=== PATIENT | male | born 1950 | race Caucasian/White ===

== ENCOUNTER 2022-01-03 14:13 | Outpatient (CLI) | payer MEDICARE, OTHER | END 2022-01-03 14:14 | disposition home or self-care (01) | LOC: CTENTCT 14:13 | PROVIDERS: ATTEND Student in an Organized Health Care Education/Training Program | DX: J33.9 Nasal polyp, unspecified (principal) | CPT/HCPCS: 70486 ==

== ENCOUNTER 2022-02-12 09:47 | Day surgery (SDC) | payer MEDICARE ==
[2022-02-11 10:38] VITALS: BMI 34.9
[2022-02-12] MEDS ORDERED: Oxymetazoline HCl 0.05% (30 ML BOT) ONE ×2 (09:50→10:36)
[2022-02-12] MEDS ORDERED: Bacitracin Zinc Ointment 30 gm TUBE ONE (09:50)
[2022-02-12] MEDS ORDERED: Lidocaine 1% (PF) 30 ML VIAL ONE (09:50)
[2022-02-12] MEDS ORDERED: EPINEPHrine 1 MG/ML AMP ONE (09:50)
[2022-02-12] MEDS ORDERED: fentaNYL PF 100 MCG/2 ML SYRINGE ONE (09:52)
[2022-02-12 10:42] LABS: #Basophils 0.1 thou/uL (0.0-0.2); #Eosinphils 0.9 thou/uL (0.0-0.7); #Lymphocytes 4.7 thou/uL (1.20-3.40); %Basophils 0.8 % (0.0-1.0); %Eosinophils 7.3 % (0.0-10.0); %Lymphocytes 36.9 % (21.0-51.0); %Monocytes 7.6 % (0.0-10.0); %Neutrophils 47.4 % (42.0-75.0); Hemoglobin 16.3 g/dL (14.0-18.0); Mean Corpuscular HGB CONC 32.2 g/dL (32.0-36.0); Mean Corpuscular Hemoglobin 32.8 pg (27.0-31.0); Mean Platelet Volume 7.2 fL (7.4-10.4); Platelet Count 256 10x3/uL (130-400); RBC Distribution Width 12.5 % (11.5-14.5); Red Blood Cell (RBC) Count 4.98 mill/uL (4.70-6.10); White Blood Cell (WBC) Count 12.6 10x3/uL (4.8-10.8)
[2022-02-12 11:03] LABS: Anion Gap 11 mmol/L (10-20); BUN (Urea Nitrogen) 12 mg/dL (8.4-25.7); Calc. Creatinine Clearance 109 mL/min (70-130); Calcium 9.9 mg/dL (7.8-10.44); Carbon Dioxide 26 mmol/L (23-31); Chloride 101 mmol/L (98-107); Estimated GFR 93; Glucose 85 mg/dL (83-110); Potassium 4.5 mmol/L (3.5-5.1); Sodium 133 mmol/L (136-145)
[2022-02-12] MEDS ORDERED: Propofol 500 MG/50 ML VIAL ONE (11:22)
[2022-02-12] MEDS ORDERED: MINERAL OIL/WHITE PETROLATUM 3.5 GM TUBE ONE (11:36)
[2022-02-12] MEDS ORDERED: Rocuronium Bromide 10 MG/ML (10ML VIAL) ONE (11:42)
[2022-02-12] MEDS ORDERED: Glycopyrrolate 0.2 MG/ML 5 ML SYRINGE ONE (11:42)
[2022-02-12] MEDS ORDERED: Dexamethasone 20 MG/5 ML VIAL ONE (11:42)
[2022-02-12] MEDS ORDERED: PROPOFOL 200 MG/20 ML VIAL ONE (11:42)
[2022-02-12] MEDS ORDERED: Ondansetron PF 4 MG/2 ML Vial ONE (11:42)
[2022-02-12] MEDS ORDERED: NEOSTIGMINE 3 MG/3 ML SYR 3 MG/3 ML SYRINGE ONE (11:42)
[2022-02-12] MEDS ORDERED: PHENYLEPHRINE-NS 100 MCG/ML 10 ML SYRINGE ONE (11:42)
[2022-02-12] MEDS ORDERED: Triamcinolone 40 MG/ML VIAL ONE (12:37)
== END 2022-02-12 15:25 | disposition home or self-care (01) ==
LOC: SDC 09:47
PROVIDERS: ATTEND Student in an Organized Health Care Education/Training Program
PROC: 8E09XBZ Computer Assisted Procedure of Head and Neck Region (ICD-10-PCS; principal; 2022-02-12)
PROC: 099S8ZZ Drainage of Right Frontal Sinus, Via Natural or Artificial Opening Endoscopic (ICD-10-PCS; 2022-02-12)
PROC: 09BU8ZZ Excision of Right Ethmoid Sinus, Via Natural or Artificial Opening Endoscopic (ICD-10-PCS; 2022-02-12)
PROC: 09BQ8ZZ Excision of Right Maxillary Sinus, Via Natural or Artificial Opening Endoscopic (ICD-10-PCS; 2022-02-12)
PROC: 09TL8ZZ Resection of Nasal Turbinate, Via Natural or Artificial Opening Endoscopic (ICD-10-PCS; 2022-02-12)
DX: J32.4 Chronic pansinusitis (principal); J30.9 Allergic rhinitis, unspecified; J34.2 Deviated nasal septum; J34.3 Hypertrophy of nasal turbinates; J33.0 Polyp of nasal cavity; J34.89 Other specified disorders of nose and nasal sinuses; F17.210 Nicotine dependence, cigarettes, uncomplicated; I10 Essential (primary) hypertension; M19.90 Unspecified osteoarthritis, unspecified site; I44.0 Atrioventricular block, first degree; I44.4 Left anterior fascicular block; Z79.899 Other long term (current) drug therapy
CPT/HCPCS: 30140; 31254; 31267; 31276; 61782; 80048; 85025; 93005; C2625; 88305; 93010; J0171; J1100; J2001; J2405; J2704; J3301